=== PATIENT | female | born 1950 | race African-American/Black ===

== ENCOUNTER 2023-06-27 23:41 | Emergency (ER) | payer MEDICARE, BC ==
[2023-06-28] MEDS ORDERED: TOPUD MT (05:33)
[2023-06-28] MEDS ORDERED: IBUP-1523 MT (05:33)
[2023-06-28] MEDS ORDERED: CLIN-194 MT (05:33)
[2023-06-28 05:58] LABS: BASOPHILS % 0.9 % (0.0-2.0); EOSINOPHILS % 3.1 % (0.0-5.0); HEMATOCRIT. 41.6 % (36.0-48.0); HEMOGLOBIN. 13.8 g/dL (12.0-16.0); LYMPHOCYTES % 20.9 % (20.0-50.0); MEAN CORPUSCULAR HEMOGLOBIN 27.7 pg (28.0-32.0); MEAN CORPUSCULAR VOLUME 83.5 fL (81.0-99.0); MEAN PLATELET VOLUME 8.8 fl (7.4-10.4); MONOCYTES % 11.6 % (2.0-8.0); NEUTROPHILS % 63.5 % (40.0-76.0); PLATELET 155 x1000/uL (130-400); RED BLOOD CELL COUNT 4.98 mill/uL (4.2-5.4); RED CELL DISTRIBUTION WIDTH 17.5 % (11.6-14.6)
[2023-06-28 06:09] LABS: CHLORIDE 109 mEq/L (98-107)
== END 2023-06-28 06:17 | disposition home or self-care (01) ==
LOC: ER 23:41
DX: K11.20 Sialoadenitis, unspecified (principal)
CPT/HCPCS: 36415; 70486; 80053; 85025; 99284